=== PATIENT | female | born 1980 | race Two or more races ===

== ENCOUNTER 2020-11-17 06:00 | Day surgery (SDC) | payer OTHER ==
[2020-11-17] MEDS ORDERED: COLACE100 MG PO (09:06)
[2020-11-17] MEDS ORDERED: PERCOCET 5-3251 EACH PO (09:06)
== END 2020-11-17 12:55 | disposition home or self-care (01) ==
LOC: CIR.AMB 06:00
PROVIDERS: ATTEND Surgery
DX: K60.3 Anal fistula (principal)

== ENCOUNTER 2021-01-19 06:00 | Day surgery (SDC) | payer OTHER ==
[~2021-01-19 06:00] MED LIST: COLACE100 MG PO; PERCOCET 5-3251 EACH PO
[2021-01-19] MEDS ORDERED: COLACE100 MG PO (09:09)
[2021-01-19] MEDS ORDERED: PERCOCET 5-3251 EACH PO (09:09)
[2021-01-19] MEDS ORDERED: METRONIDAZOLE500 MG PO (09:09)
== END 2021-01-19 13:30 | disposition home or self-care (01) ==
LOC: CIR.AMB 06:00
PROVIDERS: ATTEND Surgery
DX: K60.3 Anal fistula (principal)

== ENCOUNTER 2024-03-30 17:59 | Emergency (ER) | payer OTHER ==
[~2024-03-30] VITALS: Ht 162.6 cm; Wt 59.4 kg
[~2024-03-30 17:59] MED LIST changes: +METRONIDAZOLE500 MG PO
[2024-03-30 18:38] VITALS: BP 116/78; O2SAT 98
[2024-03-30] MEDS ORDERED: FAMOTIDINE/PF 20 MG/2 ML VIAL IV PUSH STA (19:02)
[2024-03-30] MEDS ORDERED: FAMOTIDINE/PF 20 MG/2 ML VIAL ONE (19:56)
[2024-03-30 20:50] LABS: HEMATOCRIT 37.4 % (36.0-45.00); HEMOGLOBIN 12.7 g/dL (12.0-15.00); MEAN CORPUSCULAR HEMOGLOBIN 27.8 pg (27.00-32.0); MEAN CORPUSCULAR HGB CONC 33.9 g/dl (32.0-36.0); PLATELET COUNT 367 K/uL (150-450); RED BLOOD COUNT 4.56 M/uL (4.00-6.00); RED CELL DISTRIBUTION WIDTH 13.7 % (11.5-14.5)
[2024-03-30 21:00] LABS: PH,URINE 6.5 (5.0-8.0); URINE APPEARANCE Cloudy; URINE BILIRRUBIN Negative (NEGATIVE); URINE BLOOD Small; URINE COLOR Yellow; URINE GLUCOSE Negative (NEGATIVE); URINE LEUKOCYTE Small; URINE NITRATE Negative; URINE PROTEIN Negative (NEGATIVE)
[2024-03-30 21:03] LABS: URINE BACTERIA 1495.7 uL (0.0-1933); URINE EPITHELIAL CELLS 57.1 uL (0.0-38.8); URINE RBC 19.7 uL (0.0-20.8); URINE WBC 40.3 uL (0.0-23.2)
[2024-03-30 21:04] LABS: URINE CAST 0.29 uL (0.0-1.40); URINE KETONE 40 (NEGATIVE)
[2024-03-30 21:15] LABS: ALBUMIN 3.3 gm/dL (3.4-5.0); BILIRUBIN TOTAL 0.69 mg/dL (0.3-1.2); CALCIUM 9.4 mg/dL (8.5-10.1); CREATININE SERUM 0.85 mg/dL (0.55-1.02); GFR 73.7; GLOBULINA 4.1 G/DL (2.4-3.5); POTASSIUM 4.14 mEq/L (3.5-5.1); TOTAL PROTEIN 7.4 gm/dL (6.4-8.2)
[2024-03-30] MEDS ORDERED: CIPRO500 MG PO (21:43)
[2024-03-30] MEDS ORDERED: PEPCID AC20 MG PO (21:43)
== END 2024-03-30 22:09 | disposition home or self-care (01) ==
LOC: ER 18:01
DX: K29.70 Gastritis, unspecified, without bleeding (principal); N39.0 Urinary tract infection, site not specified; R10.9 Unspecified abdominal pain; Z20.822 Contact with and (suspected) exposure to COVID-19

== ENCOUNTER 2024-03-31 10:12 | Inpatient (IN) | payer OTHER ==
[~2024-03-31] VITALS: Ht 162.6 cm; Wt 59.0 kg
[~2024-03-31 10:12] MED LIST changes: +CIPRO500 MG PO; +PEPCID AC20 MG PO
[2024-03-31] MEDS ORDERED: 0.9 % SODIUM CHLORIDE 1,000 ML IV ONE (10:45)
[2024-03-31] MEDS ORDERED: PANTOPRAZOLE SODIUM 40 MG/VIAL VIAL IV ONE (10:45)
[2024-03-31] MEDS ORDERED: ONDANSETRON HCL 2 MG/ML VIAL IV ONE (10:45)
[2024-03-31] MEDS ORDERED: KETOROLAC TROMETHAMINE 60 MG VIAL IM ONE ×2 (10:45→11:00)
[2024-03-31] MEDS ORDERED: CEFTRIAXONE SODIUM 1,000 MG VIAL IV ONE (10:45)
[2024-03-31] MEDS ORDERED: ONDANSETRON HCL 2 MG/ML VIAL ONE (11:00)
[2024-03-31] MEDS ORDERED: CEFTRIAXONE SODIUM 1,000 MG VIAL ONE (11:01)
[2024-03-31 11:11] LABS: HEMATOCRIT 38.5 % (36.0-45.00); HEMOGLOBIN 13.2 g/dL (12.0-15.00); MEAN CORPUSCULAR HGB CONC 34.2 g/dl (32.0-36.0); PLATELET COUNT 385 K/uL (150-450); RED CELL DISTRIBUTION WIDTH 13.5 % (11.5-14.5)
[2024-03-31 11:40] LABS: INR 1.07; PROTHROMBIN TIME 11.6 SECONDS (9.0-11.5)
[2024-03-31 11:50] LABS: URINE APPEARANCE Cloudy; URINE BILIRRUBIN Moderate (NEGATIVE); URINE BLOOD Small; URINE COLOR Orange; URINE GLUCOSE Negative (NEGATIVE); URINE LEUKOCYTE Small; URINE NITRATE Positive
[2024-03-31 11:51] LABS: ALBUMIN 3.5 gm/dL (3.4-5.0); ALKALINE PHOSPHATASE 361 U/L (50-136); ALT/SGPT 141 U/L (12-78); AMYLASE 42 U/L (25-115); ANION GAP 10 (10.0-20.0); AST/SGOT 364 U/L (15-37); BILIRUBIN TOTAL 1.34 mg/dL (0.3-1.2); BLOOD UREA NITROGEN 10 mg/dL (7-18); BUN CREA RATIO 11 (7.0-25.0); CALCIUM 9.6 mg/dL (8.5-10.1); CARBON DIOXIDE 29 mEq/L (21-32); CHLORIDE 103 mmol/L (98-107); CREATININE SERUM 0.95 mg/dL (0.55-1.02); GFR 64.82; GLOBULINA 4.6 G/DL (2.4-3.5); GLUCOSE FASTING 124 mg/dL (65-100); LIPASE 28 U/L (13-75); OSMOLALITY SERUM 276 MOSM/KG (275-295); POTASSIUM 3.64 mEq/L (3.5-5.1); SODIUM 138 mmol/L (136-145); TOTAL PROTEIN 8.1 gm/dL (6.4-8.2)
[2024-03-31 11:56] LABS: HCG QUANTITATIVE < 1 mUI/mL (1-3)
[2024-03-31 12:30] LABS: URINE BACTERIA 2168.8 uL (0.0-1933); URINE CAST 2.65 uL (0.0-1.40); URINE RBC 102.2 uL (0.0-20.8); URINE WBC 142.8 uL (0.0-23.2)
[2024-03-31 14:00] LABS: URINE KETONE 80 (NEGATIVE)
[2024-03-31 14:01] LABS: URINE EPITHELIAL CELLS > 201.7 uL (0.0-38.8); URINE PROTEIN 100 (NEGATIVE)
[2024-03-31 14:02] LABS: URINE CRYSTALS MODERATE /HPF
[2024-03-31] MEDS ORDERED: MORPHINE SULFATE 4 MG/ML VIAL IV ONE (17:15)
[2024-03-31] MEDS ORDERED: 0.9 % SODIUM CHLORIDE 1,000 ML IV SCH (18:45)
[2024-03-31] MEDS ORDERED: PIPERACILLIN/TAZOBACTAM SODIUM 3.375 GM in DEXTROSE 5 % IN WATER 100 ML IV SCH (18:48)
[2024-03-31] MEDS ORDERED: ONDANSETRON HCL 4 MG in 0.9 % SODIUM CHLORIDE 50 ML IV PRN (19:00)
[2024-03-31] MEDS ORDERED: MORPHINE SULFATE 4 MG/ML CARTRIDGE IV PRN (19:00)
[2024-03-31] MEDS ORDERED: KETOROLAC TROMETHAMINE 30 MG VIAL IU ONE (19:00)
[2024-03-31] MEDS ORDERED: ACETAMINOPHEN 500 MG GEL..CAP PO PRN (19:00)
[2024-03-31] MEDS ORDERED: PIPERACILLIN/TAZOBACTAM SODIUM 3.375 GM VIAL IV ONE ×2 (19:30→23:37)
[2024-03-31] MEDS ORDERED: KETOROLAC TROMETHAMINE 30 MG VIAL ONE (19:30)
[2024-03-31 19:34] VITALS: BP 128/81; O2SAT 98
[2024-04-01 00:03] VITALS: BP 117/80; O2SAT 98
[2024-04-01] MEDS ORDERED: PIPERACILLIN/TAZOBACTAM SODIUM 3.375 GM VIAL IV ONE ×2 (05:20→17:17)
[2024-04-01 07:29] LABS: ALBUMIN 3.1 gm/dL (3.4-5.0); BILIRUBIN TOTAL 4.21 mg/dL (0.3-1.2); BILIRUBIN,CONJUGATED 3.24 mg/dL (0.0-0.2); BILIRUBIN,UNCONJUGATED 0.97 mg/dL (0.0-0.6); TOTAL PROTEIN 6.7 gm/dL (6.4-8.2)
[2024-04-01] MEDS ORDERED: FAMOTIDINE/PF 20 MG/2 ML VIAL ONE (07:44)
[2024-04-01 08:27] VITALS: BP 114/72; O2SAT 99
[2024-04-01] MEDS ORDERED: FAMOTIDINE/PF 20 MG in 0.9 % SODIUM CHLORIDE 8 ML IV PUSH SCH (09:00)
[2024-04-02 00:22] VITALS: BP 121/82; O2SAT 98
[2024-04-02 06:27] LABS: HEMATOCRIT 36.1 % (36.0-45.00); MEAN CELL VOLUME 83.4 fL (80.00-100.00); MEAN CORPUSCULAR HEMOGLOBIN 27.8 pg (27.00-32.0); MEAN CORPUSCULAR HGB CONC 33.3 g/dl (32.0-36.0); PLATELET COUNT 371 K/uL (150-450); RED BLOOD COUNT 4.33 M/uL (4.00-6.00); RED CELL DISTRIBUTION WIDTH 13.5 % (11.5-14.5)
[2024-04-02 07:13] LABS: ALBUMIN 2.9 gm/dL (3.4-5.0); BILIRUBIN TOTAL 5.37 mg/dL (0.3-1.2); CALCIUM 9.1 mg/dL (8.5-10.1); CREATININE SERUM 0.73 mg/dL (0.55-1.02); GFR 87.85; GLOBULINA 3.5 G/DL (2.4-3.5); PHOSPHOROUS 2.8 mg/dL (2.5-4.9); POTASSIUM 4.73 mEq/L (3.5-5.1); TOTAL PROTEIN 6.4 gm/dL (6.4-8.2)
[2024-04-02 07:14] LABS: C-REACTIVE PROTEIN 12.7 MG/DL (0.00-0.29)
[2024-04-02 08:00] VITALS: BP 119/73; O2SAT 97
[2024-04-02] MEDS ORDERED: BUPIVACAINE HCL/MPF 0.5% 30ML VIAL ONE (12:23)
[2024-04-02] MEDS ORDERED: LIDOCAINE HCL 1%/EPINEPHRINE 20ML VIAL IJ ONE (12:24)
[2024-04-02] MEDS ORDERED: ENALAPRILAT DIHYDRATE 1.25 MG/ML VIAL IV ONE ×2 (14:15→14:20)
[2024-04-02] MEDS ORDERED: MORPHINE SULFATE 4 MG/ML VIAL IV ONE (17:35)
[2024-04-02] MEDS ORDERED: PIPERACILLIN/TAZOBACTAM SODIUM 3.375 GM VIAL IV ONE (18:26)
[2024-04-02 18:53] VITALS: BP 113/80; O2SAT 97
[2024-04-03 00:21] VITALS: BP 95/68; O2SAT 96
[2024-04-03 08:47] VITALS: BP 113/74; O2SAT 100
[2024-04-03] MEDS ORDERED: FLUCONAZOLE 100 MG TABLET PO SCH (12:00)
[2024-04-03 12:01] LABS: HEMOGLOBIN 11.3 g/dL (12.0-15.00); MEAN CELL VOLUME 82.3 fL (80.00-100.00); MEAN CORPUSCULAR HEMOGLOBIN 28.1 pg (27.00-32.0); MEAN CORPUSCULAR HGB CONC 34.1 g/dl (32.0-36.0); PLATELET COUNT 381 K/uL (150-450); RED BLOOD COUNT 4.01 M/uL (4.00-6.00); RED CELL DISTRIBUTION WIDTH 14.2 % (11.5-14.5)
[2024-04-03 12:09] LABS: hav igm Negative (Negative); hcv Non Reactive (Non Reactive); hep b c Negative (Negative); hep b s ag Negative (Negative)
[2024-04-03 12:27] LABS: ALBUMIN 2.5 gm/dL (3.4-5.0); BILIRUBIN TOTAL 1.91 mg/dL (0.3-1.2); CALCIUM 8.9 mg/dL (8.5-10.1); CREATININE SERUM 0.76 mg/dL (0.55-1.02); GFR 83.86; GLOBULINA 3.5 G/DL (2.4-3.5); POTASSIUM 4.55 mEq/L (3.5-5.1)
[2024-04-03 16:00] VITALS: BP 106/72; O2SAT 97
[2024-04-04] VITALS: BP 108/72; O2SAT 95
[2024-04-04 08:57] VITALS: BP 103/72; O2SAT 97
[2024-04-04 16:10] VITALS: BP 103/78; O2SAT 99
[2024-04-05] VITALS: BP 105/71; O2SAT 98
[2024-04-05 08:54] VITALS: BP 102/69; O2SAT 97
[2024-04-05 13:52] LABS: ALBUMIN 2.9 gm/dL (3.4-5.0); BILIRUBIN TOTAL 1.06 mg/dL (0.3-1.2); CALCIUM 9.1 mg/dL (8.5-10.1); CREATININE SERUM 0.72 mg/dL (0.55-1.02); GFR 89.26; GLOBULINA 3.8 G/DL (2.4-3.5); POTASSIUM 4.13 mEq/L (3.5-5.1); TOTAL PROTEIN 6.7 gm/dL (6.4-8.2)
== END 2024-04-05 15:12 | disposition home or self-care (01) | DRG 418 ==
LOC: ER 10:14 → SEC-K 20:24 → SURH 20:24 → MEDJ 04-01 15:19 → SEC-K 04-01 15:44 → SURH 04-01 20:07
PROVIDERS: General Practice; Internal Medicine Infectious Disease; Specialist; ADMIT Student in an Organized Health Care Education/Training Program; ATTEND Student in an Organized Health Care Education/Training Program
PROC: BW40ZZZ Ultrasonography of Abdomen (ICD-10-PCS; 2024-03-31)
PROC: BF13YZZ Fluoroscopy of Gallbladder and Bile Ducts using Other Contrast (ICD-10-PCS; 2024-04-02)
PROC: 0FT44ZZ Resection of Gallbladder, Percutaneous Endoscopic Approach (ICD-10-PCS; principal; 2024-04-02 10:30)
PROC: BF37ZZZ Magnetic Resonance Imaging (MRI) of Pancreas (ICD-10-PCS; 2024-04-05)
DX: K80.00 Calculus of gallbladder with acute cholecystitis without obstruction (principal); N39.0 Urinary tract infection, site not specified; K29.70 Gastritis, unspecified, without bleeding; E80.6 Other disorders of bilirubin metabolism